=== PATIENT | female | born 1985 | race Caucasian/White ===

== ENCOUNTER 2025-02-17 11:47 | Emergency (ER) | payer OTHER, SELFPAY ==
--- NOTE | 2025-02-17 11:54 | ED.LOWEXIN ---
HPI - Extremity Injury (Lower) General Chief Complaint: Extremity Injury, Lower Stated Complaint: R Toe Pain Time Seen by Provider: 02/17/25 12:06 Source: patient and RN notes reviewed Mode of arrival: ambulatory Limitations: no limitations History of Present Illness HPI Narrative: 39-year-old female presents concern for pain to the 1st digit of the right foot. Reports week ago she injured the toe, she had it x-rayed in the x-ray was normal. Reports that time she had some redness and swelling around the nail bed. Reports since then it has become more swollen, more red, more painful and now has purulent drainage from the site of the toenail. complaint: other Related Data Allergies Allergy/AdvReac Type Severity Reaction Status Date / Time No Known Allergies Allergy Unverified 02/17/25 12:13 Review of Systems Review of Systems: CONSTITUTIONAL: Denies malaise, chills, sweats, or fever. SKIN: Denies rash or itching, open skin, laceration, abrasion. Reports redness, warmth, swelling with purulent drainage around nail bed the 1st digit of the right foot. MUSCULOSKELETAL: Reports pain to the 1st digit of the right foot NEUROLOGIC: Denies numbness, weakness All systems reviewed & are unremarkable except as noted in HPI and below PMFSH Family History Family History (Updated 12/28/17 @ 08:46 by DOCTOR UNKNOWN) Father Diabetes mellitus Other Carcinoma of colon Social History Social History Smoking status: Never smoker Alcohol intake: current Comments At time of signature, agree with nursing past medical, surgical, social and family history. There is no relevant family history pertinent to the presenting complaint Exam Narrative: GENERAL: Well-appearing, well-nourished, and in no acute distress. HEAD: Normocephalic, atraumatic. EYES: PERRLA, conjunctivae clear NECK: Supple. CHEST: Speaks in full sentences. No respiratory distress. HEART: Regular rate and rhythm. Normal and equal peripheral pulses. EXTREMITIES: [Xxx] has grossly normal strength and sensation, grossly normal range of motion. No edema or ecchymosis. 5/5 strength with [xxx] flexion and extension. Normal sensation with sensitivity to light touch and pain. No point tenderness. No open wounds, no skin tenting, no devitalized tissue or atrophy, no trophic changes, no obvious deformity, alignment normal, nearby joints and structures intact. Distal pulses palpable and equal bilaterally, skin warm, dry, pink. Capillary refill less than 3 seconds. SKIN: Warm, dry, no rash. NEURO: Alert and oriented x3. PSYCH: Normal mood and affect Course Course Emergency Course: Patient is aware of diagnosis, understands and agrees to treatment plan. Anticipatory guidance given. Patient agrees to follow-up as directed and is aware of reasons to seek care at the emergency department. Portions of this record may have been created with voice recognition software Level of Care: Express Care Visit Vital Signs Vital signs: Vital Signs Temperature 97.3 F L 02/17/25 12:03 Pulse Rate 94 02/17/25 12:03 Respiratory Rate 16 02/17/25 12:03 Blood Pressure 144/83 H 02/17/25 12:03 Pulse Oximetry 100 02/17/25 12:03 Temperature 97.3 F L 02/17/25 12:03 Pulse Rate 94 02/17/25 12:03 Respiratory Rate 16 02/17/25 12:03 Blood Pressure 144/83 H 02/17/25 12:03 Pulse Oximetry 100 02/17/25 12:03 Reviewed. Procedures Nail Trephination Nail Trephination #1: Nail Trephination Date: 02/17/25 Nail Trephination Time: 12:16 Time out: Yes Location (finger): right Location (toes): first digit Sterile prep: betadine Method of drainage: nail cautery Procedure successful: Yes Patient tolerated procedure: well Complications: other (pus) MDM - Extremity Injury (Lower) MDM Narrative Medical decision making narrative: The patient was evaluated by myself in the express care. History is obtained from patient who is an independent historian and physical exam was performed.? Available medical records were reviewed at this time. ? Exam findings show no acute concerns or changes; patient is non-toxic appearing and is in no distress. Patient is appropriate for outpatient treatment and follow-up. ? I have evaluated and discussed social determinants of health with the patient that could potentially impact subsequent diagnosis and treatment plans. ? Patients injury and pain is consistent with musculoskeletal etiology. No signs of neurological or vascular compromise on exam. Compartments and tissues are soft without signs of compartment syndrome. Pain is felt appropriate for further evaluation on an outpatient basis. Critical Care Time Critical Care Time Critical Care Time: No Discharge Plan Discharge Clinical Impression: Paronychia Patient Disposition: Home Condition: Stable Instructions: Antibiotic Form, Paronychia (ED) Additional Instructions: Soak your nail: Soak your nail in a mixture of equal parts vinegar and water 3 or 4 times each day. This will help decrease inflammation. Apply a warm compress: Soak a washcloth in warm water and place it on your nail. This will help decrease inflammation. Elevate: Raise your nail above the level of your heart as often as you can. This will help decrease swelling and pain. Prop your nail on pillows or blankets to keep it elevated comfortably. Use lotion: Apply lotion after you wash your hands. This will prevent your skin from becoming too dry. Please follow-up with your primary care doctor in the next 1-2 days. If you cannot follow-up with your primary care doctor please go to the ED for any urgent issues. 2) If you have any worsening of symptoms or any other concerns please go to the ED immediately. 3) Please take medications as prescribed andcontinue taking your home medications as usual. Patient Language: Thai Prescriptions: New sulfamethoxazole-trimethoprim 800-160 mg tablet 1 tablet PO Q12H 7 Days Qty: 14 0RF Follow-up/Referrals: PHYSICIAN,TALENT ACQUISITION ASSISTANT [Primary Care Provider] - Time of Disposition: 12:23
[2025-02-17 12:03] VITALS: BP 144/83; PULSE 94; RESP 16; TEMP 36.3; O2SAT 100
== END 2025-02-17 12:34 | disposition home or self-care (01) ==
PROVIDERS: Emergency Provider Nurse Practitioner
DX: L03.031 Cellulitis of right toe (principal)
CPT/HCPCS: 11740; 99213; G0463